=== PATIENT | male | born 1985 ===

== ENCOUNTER → 2023-06-23 | Outpatient (CLI) | payer OTHER | END | disposition home or self-care (01) | LOC: US 14:46 | PROVIDERS: ATTEND Internal Medicine | DX: N50.3 Cyst of epididymis (principal) ==

== ENCOUNTER → 2023-07-28 | Outpatient (CLI) | payer OTHER | END | disposition home or self-care (01) | LOC: US 10:00 | PROVIDERS: ATTEND Internal Medicine | DX: E04.2 Nontoxic multinodular goiter (principal) ==

== ENCOUNTER → 2023-09-09 | Outpatient (CLI) | payer OTHER | END | disposition home or self-care (01) | LOC: SDC 01:59 → EDSTATUS 11:00 | PROVIDERS: ATTEND Specialist | DX: E04.1 Nontoxic single thyroid nodule (principal) ==

== ENCOUNTER → 2025-09-18 | Outpatient (CLI) | payer BC ==
[2025-09-18 09:17] LABS: BASO # 0.1 10*3/uL (0.0-0.1); BASO % 1.1 % (0.0-1.0); EOS # 0.4 10*3/uL (0.0-0.4); EOS % 7.3 % (1.0-4.0); MEAN CELL VOLUME 89.9 fl (80.0-94.0); MEAN CORPUSCULAR HGB 31.5 pg (27.0-31.0); MEAN PLATELET VOLUME 11.7 fl (9.6-12.3); MONO # 0.4 10*3/uL (0.1-1.0); MONO % 8.2 % (3.0-9.0); NEUT # 2.6 10*3/uL (2.3-7.9); NEUT % 50.3 % (47.0-73.0); NUCLEATED RED BLOOD CELL 0.0 % (0.0-0.0); NUCLEATED RED BLOOD CELL 0.0 10*3/uL (0.0-0.0); PLATELET COUNT AUTOMATED 184 10*3/uL (130-400); RED CELL DISTRI WIDTH 12.6 % (0-14.5)
[2025-09-18 09:41] LABS: BUN 15 mg/dl (9-23); LDL CHOLESTEROL 153 mg/dL (9-159); SGPT/ALT 92 U/L (5-49)
[2025-09-19 06:07] LABS: MEASLES (RUBEOLA) Abs, IgG 43.1 AU/mL (Immune >16.4); MUMPS ANTIBODIES, IGG <9.0 AU/mL (Immune >10.9)
== END | disposition home or self-care (01) ==
LOC: LAB 00:52
PROVIDERS: ATTEND Internal Medicine
DX: M04.1 Periodic fever syndromes (principal); Z11.59 Encounter for screening for other viral diseases